=== PATIENT | female | born 1935 | race Caucasian/White ===

== ENCOUNTER → 2016-04-28 10:21 | Outpatient (CLI) | payer MEDICARE, OTHER ==
[2015-04-24 15:38] VITALS: BMI 33.0
[~2016-04-28 10:21] MED LIST: BAYER CHEWABLE81 MG PO; CELEBREX200 MG PO; CELEXA40 MG PO; CRESTOR10 MG PO; GLUCOSAMINE & C1 CAP PO; ISOSORBIDE MONO30 M1 PO; KENALOG IN ORABA5 GM TOPICAL; MULTI-DAY VITAM1 TAB PO; NEURONTIN 300300 MG PO; OYST-CAL-5001 TAB PO; PLAVIX75 MG PO; PROTONIX40 MG PO; VALTREX500 MG PO; XANAX0.5 MG PO; XARELTO20 MG PO; ZETIA10 MG PO
== END | disposition home or self-care (01) ==
LOC: D.CT 10:21
DX: J98.4 Other disorders of lung (principal)

== ENCOUNTER 2016-07-04 08:05 | Outpatient (CLI) | payer MEDICARE, OTHER ==
[~2016-07-04 08:05] MED LIST changes: -BAYER CHEWABLE81 MG PO
[2016-07-04 09:04] LABS: BASOPHILS 0 % (0-2); EOSINOPHILS 1.6 % (0-7); HEMATOCRIT 33.9 % (36.0-48.0); HEMOGLOBIN 11.2 g/dL (12-16); IMMATURE GRANULOCYTES 0.2 % (0-5); LYMPHOCYTES 31.9 % (15-50); MCH 31.3 pg (26.0-34.0); MCV 94.7 fL (80.0-100.0); MEAN PLATELET VOLUME 10.1 fL (7.4-10.4); MONOCYTES 9.1 % (2-11); NEUTROPHILS 57.2 % (40-80); PLATELET COUNT 191 10x3/uL (130-400); RBC 3.58 10x6/uL (4.00-5.40); RDW 13.4 % (11.5-14.5); WBC 4.4 10x3/uL (4.8-10.8)
[2016-07-04 09:15] LABS: ANION GAP 8.3 mmol/L (8-16); CALCIUM 9.1 mg/dL (8.5-10.1); CARBON DIOXIDE 30.6 mmol/L (21.0-32.0); CREATININE - SERUM 1.1 mg/dL (0.6-1.3); POTASSIUM - SERUM 3.9 mmol/L (3.5-5.1)
[2016-07-04 10:17] LABS: CKMB 0.6 U/L (0.0-3.6); CREATINE KINASE 60 UL (21-215); TROPONIN-I < 0.017 ng/mL (0.000-0.060)
[2016-07-04] MEDS ORDERED: BAYER CHEWABLE81 MG PO (12:45)
== END 2016-07-04 16:33 | disposition home or self-care (01) ==
LOC: D.CATH 08:05
PROVIDERS: Internal Medicine Interventional Cardiology
DX: I25.119 Atherosclerotic heart disease of native coronary artery with unspecified angina pectoris (principal); Z95.1 Presence of aortocoronary bypass graft; Z00.6 Encounter for examination for normal comparison and control in clinical research program
CPT/HCPCS: 92978; 92979; 93459; C9600

== ENCOUNTER → 2016-07-17 14:00 | Outpatient (CLI) | payer MEDICARE, OTHER ==
[2016-07-04 08:46] VITALS: BMI 32.8
[~2016-07-17 14:00] MED LIST changes: +BAYER CHEWABLE81 MG PO
== END | disposition home or self-care (01) ==
LOC: D.CT 14:00
DX: R10.13 Epigastric pain (principal)

== ENCOUNTER → 2016-12-23 12:42 | Outpatient (CLI) | payer MEDICARE, OTHER ==
[2016-07-04 08:46] VITALS: BMI 32.8
== END | disposition home or self-care (01) ==
LOC: D.CT 12:42
DX: J98.4 Other disorders of lung (principal)

== ENCOUNTER → 2017-04-27 10:01 | Outpatient (CLI) | payer MEDICARE, OTHER ==
[2016-07-04 08:46] VITALS: BMI 32.8
== END | disposition home or self-care (01) ==
LOC: D.CT 04-09 11:00
DX: R91.1 Solitary pulmonary nodule (principal)

== ENCOUNTER → 2017-05-04 16:37 | Outpatient (CLI) | payer MEDICARE, OTHER ==
[2016-07-04 08:46] VITALS: BMI 32.8
== END | disposition home or self-care (01) ==
LOC: D.LABREF 16:37
PROVIDERS: Internal Medicine Pulmonary Disease
DX: R91.1 Solitary pulmonary nodule (principal)

== ENCOUNTER → 2017-07-15 09:33 | Outpatient (CLI) | payer MEDICARE, OTHER ==
[~2017-07-15] VITALS: Ht 175.3 cm; Wt 98.2 kg
--- NOTE | ~2017-07-15 | HEMODYNAMI ---
PATIENT:DAVID VEGAS MEDICAL RECORD: [id number] : 39 LOCATION:D.CAT ADMISSION DATE: 07/15/17 Generatedon:07/15/201712:08 Patient name: DAVID PÉREZ Patient #: [id number] SS N: : 1935 Date of study: 07/15/2017 Page: Of Hemodynamic Procedure Report Patient Data Patient Demographics Procedure consent was obtained First Name: DAVID Gender: Female Last Name: SELENA PÉREZ : 1935 [facility] Initial: L Age: 82 year(s) Patient #: [id number] Race: Additional ID: [id number] Contact details [address]: [address] [place] [address] State: [place] City: [place] Zip code: [address] Past Medical History Allergies Allergen Reaction Date Comments Reported Other allergy 07/04/2016 Pronestyl Other allergy 07/15/2017 pronestyl Admission Admission Data Admission Date: 07/15/2017 Admission Time: 9:33 Procedure Procedure Types Cath Procedure Diagnostic Procedure LHC LHC w/Coronaries w/Grafts FFR/IVUS Intra-Coronary IVUS Initial Procedure Description Procedure Date Procedure Date: 07/15/2017 Procedure Start Time: 11:54 Procedure End Time: 12:06 Procedure Staff Name Function Bashir Dietz MD Performing Physician Ana Smith RT Monitor Lebron Diane RN Nurse Lyly Newby RT Scrub Procedure Data Cath Procedure Fluoroscopy Diagnostic fluoroscopy Total fluoroscopy Time: 2.7 time: 2.7 min min Diagnostic fluoroscopy Total fluoroscopy dose: 923 dose: 923 mGy mGy Contrast Material Contrast Material Type Amount (ml) Isovue 300 74 Entry Location Entry Primary Successful Side Size Upsize Upsize Entry Closure Succes sful Closure Location (Fr) 1 (Fr) 2 (Fr) Remarks Device Remarks Femoral Right 5 Fr 6 Fr Exoseal artery Short Estimated blood loss: 10 ml Diagnostic catheters Device Type Used For End Catheter Placement MULTIPACK Pigtail 5 Fr Procedure catheter MULTIPACK JL 4.0 5Fr Procedure catheter MULTIPACK 3DRC 5Fr Procedure catheter DIAGNOSTIC AR 2 MOD 5 Fr SVG Angiography catheter ([id number]) Procedure Complications No complications Procedure Medications Medication Administration Route Dosage Oxygen etCO2 Nasal cannula 2 l/min Heparin Flush Bag added to field 2 bags (1000units/500ml NS) 0.9% NaCl I.V. 100 ml/hr Lidocaine 2% added to field 20 Versed I.V. 1 mg Fentanyl I.V. 50 mcg Versed I.V. 1 mg Fentanyl I.V. 50 mcg Versed I.V. 1 mg Fentanyl I.V. 50 mcg Hemodynamics Rest Heart Rate: 61 (bpm) Snapshots Pre Cath Intra NCS Post Cath Vital Signs Time Heart Resp SPO2 etCO2 NIBP (mmHg) Rhythm Pain Sedation Rate (ipm) (%) (mmHg) Status Level (bpm) 11:17:55 60 16 95 0 157/73(101) Paced 0 (11) 10(A) , No pain 11:22:17 59 16 96 0 152/75(125) Paced 0 (11) 10(A) , No pain 11:26:41 60 20 95 0 151/69(122) Paced 0 (11) 10(A) , No pain 11:31:01 61 16 98 0 151/70(118) Paced 0 (11) 10(A) , No pain 11:35:22 60 15 94 8.2 142/73(105) Paced 0 (11) 10(A) , No pain 11:39:38 59 14 97 0 144/75(104) Paced 0 (11) 10(A) , No pain 11:43:54 59 16 98 14.2 141/68(118) Paced 0 (11) 10(A) , No pain 11:48:16 63 20 98 27.7 146/73(120) Paced 0 (11) 10(A) , No pain 11:52:40 60 15 97 0 139/71(104) Paced 0 (11) 9(A) , No pain 11:57:41 62 16 94 14.2 151/71(125) Paced 0 (11) 9(A) , No pain 12:02:05 60 17 93 0 140/77(131) Paced 0 (11) 9(A) , No pain 12:06:23 60 17 94 0 137/74(123) Paced 0 (11) 10(A) , No pain Medications Time Medication Route Dose Verified Delivered Reason Notes Eff ectiveness by by 11:26:03 Oxygen etCO2 2 Bashir Buffie Per Nasal l/min Mirela Diane RN physician cannula 11:26:11 Heparin Flush added 2 Bashir Buffie used for Bag to bags Mirela Diane RN procedure (1000units/500ml field NS) 11:26:20 0.9% NaCl I.V. 100 Bashirmarleny Novoaie Per ml/hr Mirela Diane RN physician 11:49:09 Lidocaine 2% added 20ml Bashir Bashir for local to vial Mirela Dietz MD anesthetic field 11:49:59 Versed I.V. 1 mg Bashir Buffie for Mirela Diane RN sedation 11:50:05 Fentanyl I.V. 50 Bashir Buffie for mcg Mirela Diane RN sedation 11:55:30 Versed I.V. 1 mg Bashir Buffie for Mirela Diane RN sedation 11:55:34 Fentanyl I.V. 50 Bashir Buffie for mcg Mirela Diane RN sedation 12:02:28 Versed I.V. 1 mg Bashir Buffie for Mirela Diane RN sedation 12:02:32 Fentanyl I.V. 50 Bashir Buffie for mcg Mirela Diane RN sedation Procedure Log Time Note 11:00:33 Lyly Newby RT(R) sent for patient. Start room use. 11:11:39 Time tracking: Regular hours (M-F 7:00 - 5:00) 11:11:44 Plan of Care:Hemodynamics will remain stable., Cardiac rhythm will remain stable., Comfort level will be maintained., Respiratory function will remain adequate., Patient/ family verbilizes understanding of procedure., Procedure tolerated without complication., Recovers from procedure without complications.. 11:11:48 Patient received from Pre/Post Procedure Room to CCL 2 Alert and oriented. Tansferred to table in Supine position. 11:11:49 Warm blankets applied, and ally hugger turned on for patient comfort. 11:11:49 Correct patient and procedure confirmed by team. 11:11:51 Signed procedure consent form obtained from patient. 11:11:51 ECG and BP/O2 sat monitors applied to patient. 11:16:37 Vital chart was started 11:16:52 Baseline sample Acquired. 11:16:58 Rhythm: paced 11:17:00 Full Disclosure recording started 11:17:13 H&P Date Dictated: 07/13/2017 Within 30 days and on chart., H&P Addendum completed by physician on day of procedure. (MUST COMPLETE FOR ALL OUTPATIENTS). 11:17:15 Pre-procedure instructions explained to patient. 11:17:18 Family in waiting room. 11:17:22 Patient NPO since Midnight. 11:17:54 Patient allergic to Other allergypronestyl 11:18:13 Is the patient allergic to Iodine/contrast media? No. 11:18:15 Was the patient premedicated? Yes 11:18:17 Is patient on blood thinner?Yes 11:18:20 Patient diabetic? No. 11:18:25 Snore? Yes 11:18:27 Sleep apnea? Yes 11:18:40 Airway obstruction? Yes COPD, Emphazema 11:18:47 Dentures? Unknown ? 11:18:54 Patient pain scale 0/10 ?. 11:18:59 IV patent on arrival in left forearm with 0.9% NaCl at [facility]. 11:19:07 Lab results completed and on chart. 11:19:11 Right groin area was prepped with chlora-prep and draped in sterile fashion 11:19:12 Alarms reviewed by R. N. 11:19:12 Sharps counted by scrub and verified by R.N. 11:26:03 Oxygen 2 l/min etCO2 Nasal cannula was administered by Lebron Diane RN; Per physician; 11:26:11 Heparin Flush Bag (1000units/500ml NS) 2 bags added to field was administered by Lebron Diane RN; used for procedure; 11:26:20 0.9% NaCl 100 ml/hr I.V. was administered by Lebron Diane RN; Per physician; 11:31:39 Use device set Femoral Dx 11:31:45 ACIST Syringe (28764) opened to sterile field. 11:31:46 Bag Decanter (2002) opened to sterile field. 11:31:47 Medline Cath Pack ([id number]) opened to sterile field. 11:31:48 DIAGNOSTIC WIRE .035 260cm J wire (674538) opened to sterile field. 11:31:49 ACIST Hand Control (57174) opened to sterile field. 11:31:50 ACIST Manifold (13764) opened to sterile field. 11:31:50 DIAGNOSTIC Multipack 5Fr catheter set (DP3476) opened to sterile field. 11:31:52 Tegaderm 4 x 4 (1626W) opened to sterile field. 11:31:53 PERCUTANEOUS ENTRY 19GA needle opened to sterile field. 11:31:56 SHEATH Prelude 5Fr 0.035 (ZOV-9I-09-035) opened to sterile field. 11:32:03 Zero performed for pressure channel P1 11:32:17 Zero performed for pressure channel P1 11:49:09 Lidocaine 2% 20ml vial added to field was administered by Bashir Dietz MD; for local anesthetic; 11:49:45 Physician arrived 11:49:46 --------ALL STOP TIME OUT------ 11:49:47 Final Timeout: patient, procedure, and site verified with staff and physician. All members of the team are in agreement. 11:49:51 Right groin site verified by team. 11:49:53 Physical assessment completed. ASA score P 2 - A patient with mild systemic disease as per Bashir Dietz MD. 11:49:58 Sedation plan: IV Moderate Sedation Medication:Versed, Fentanyl 11:49:59 Versed 1 mg I.V. was administered by Lebron Diane RN; for sedation; 11:50:05 Fentanyl 50 mcg I.V. was administered by Lebron Diane RN; for sedation; 11:53:16 Procedure started. 11:54:13 Local anesthetic to right femoral artery with Lidocaine 2% by Bashir Dietz MD.INITIAL ACCESS ONLY 11:55:30 Versed 1 mg I.V. was administered by Lebron Diane RN; for sedation; 11:55:34 Fentanyl 50 mcg I.V. was administered by Lebron Diane RN; for sedation; 11:55:52 A 5 Fr sheath was inserted into the Right Femoral artery 11:56:08 A MULTIPACK Pigtail 5 Fr catheter was advanced over the wire and used for Procedure. 11:56:19 LV gram done using BROWN 11:56:25 EF : 50 % 11:56:29 Catheter removed. 11:56:54 A MULTIPACK JL 4.0 5Fr catheter was advanced over the wire and used for Procedure. 11:57:00 LCA angiography performed. 11:58:50 Catheter removed. 11:59:01 A MULTIPACK 3DRC 5Fr catheter was advanced over the wire and used for Procedure. 11:59:05 RCA angiography performed. 12:01:05 A DIAGNOSTIC AR 2 MOD 5 Fr catheter ([id number]) was advanced over the wire and used for SVG Angiography. 12:01:10 Catheter removed. 12:01:14 SHEATH 6Fr Prelude ([id number]) opened to sterile field. 12:01:15 INFLATOR Merit BasixCompak (NT3132) opened to sterile field. 12:01:16 CHOICE PT Extra Support 182cm wire ([id number]) opened to sterile field. 12:01:17 Cromwell Gambell Eagleye IVUS Catheter (65914H) opened to sterile field. 12:01:17 GUIDE 6FR HS II catheter (FX4XWAM) opened to sterile field. 12:01:25 Proceeding to intervention. 12:01:44 Sheath upsized to a 6 Fr Short. 12:01:56 6 Fr HS2 guide catheter was inserted over the wire 12:02:09 choice pt ex wire advanced. 12:02:11 Wire advanced across lesion. 12:02:28 Versed 1 mg I.V. was administered by Lebron Diane RN; for sedation; 12:02:32 Fentanyl 50 mcg I.V. was administered by Lebron Diane RN; for sedation; 12:03:04 IVUS catheter advanced over wire. 12:04:04 IVUS catheter removed over wire. 12:04:12 EXOSEAL 6Fr (EX600) opened to sterile field. 12:04:19 Wire removed. 12:04:20 Guide catheter removed. 12:04:29 Sheath removed intact; hemostasis achieved with Exoseal to the Right Femoral artery. 12:04:47 Procedure ended.(Physican Out) 12:04:58 Fluoroscopy time 02.70 minutes. 12:05:02 Flurop Dose total: 923 12:05:02 Fluoroscopy dose: 923 mGy 12:05:06 Contrast amount:Isovue 300 74ml. 12:05:07 Sharps counted by scrub and verified by R.N. 12:05:10 Insertion/operative site no bleeding no hematoma. 12:05:11 Post Procedure Pulses reassessed and unchanged 12:05:16 Post procedure rhythm: unchanged. 12:05:19 Estimated blood loss: 10 ml 12:05:21 Post procedure instruction explained to patient.Patient verbalizes understanding. 12:05:35 Procedure type changed to Cath procedure, Diagnostic procedure, LHC, LHC w/Coronaries w/Grafts, FFR/IVUS, Intra-Coronary IVUS Initial 12:05:38 Procedure and supply charges have been captured, reviewed, submitted and are correct. 12:06:21 Procedure Complication : No complications 12:06:23 Vital chart was stopped 12::29 Patient transfered to Pre/Post Procedure Room with Stretcher. 12::31 Procedure ended. 12::31 Full Disclosure recording stopped 12::35 End room use (Document Last) Device Usage Item Name Manufacture Quantity Catalog Number Hospital Part Current M inimal Lot# / Charge Number Stock Stock Serial# Code ACIST Syringe Acist 1 45122 643740 735264 167277 2 0 (61338) [employer] Bag Decanter Microtek 1 2001S 211593 76408 749671 5 () Medical Inc. Medline Cath Cardinal 1 [id number] 351110 40123 600762 5 Pack Health ([id number]) DIAGNOSTIC WIRE [facility] Christiano 1 [id number] 286454 463437 200192 3 0 .035 260cm J wire (769960) ACIST Hand Acist 1 45856 936136 725999 732990 5 Control (86542) Medical Systems Inc ACIST Manifold Acist 1 80017 380298 019877 968361 5 (19121) Medical Systems Inc DIAGNOSTIC Cardinal 1 [id number] 602571 30993 334869 3 0 Multipack 5Fr Health catheter set (EV2297) Tegaderm 4 x 4 3M 1 1626W 432122 081234 351289 5 (1626W) PERCUTANEOUS Cook Medical 1 M09164 230669 604010 5 ENTRY 19GA needle SHEATH Prelude Merit 1 [id number] 208972 430578 085447 5 5Fr 0.035 Medical (VJK-2I-77-035) MULTIPACK Cardinal 1 982948 5 Pigtail 5 Fr Health catheter MULTIPACK JL Cardinal 1 242565 5 4.0 5Fr Health catheter MULTIPACK 3DRC Cardinal 1 396739 5 5Fr catheter Health DIAGNOSTIC AR 2 Cardinal 1 [id number] 564038 992285 534040 2 0 MOD 5 Fr Health catheter (677458P) SHEATH 6Fr Merit 1 [id number] 312876 519966 577470 5 Prelude Medical ([id number]) INFLATOR Merit Merit 1 KA6432 050703 584374 623804 1 5 [facility] (LK0051) CHOICE PT Extra Husser 1 [id number] 372220 149514 184759 5 Support 182cm Scientific wire ([id number]) Cromwell Cromwell 1 57495Y 105304 755952 919852 8 Gambell Eagleye IVUS Catheter (36828I) GUIDE 6FR HS II Medtronic 1 [id number] 057371 61509 208474 1 catheter ([id number]) EXOSEAL 6Fr Cardinal 1 EX600 491668 189742 023563 1 0 (EX600) Health Signature Audit [place] Stage Time Signature Unsigned Intra-Procedure 07/15/2017 Ana Smith 12:08:04 PM RT(R) Signatures Monitor : Ana Smith Signature : RT Date : Time : [place] [place] [address]
--- NOTE | ~2017-07-15 | OP ---
PATIENT NAME: DAVID VEGAS MEDICAL RECORD: [id number] :39 LOCATION:D.CAT ADMISSION DATE: SURGEON: DANIE AVINA MD DATE OF OPERATION: 07/15/2017 PROCEDURES: 1. Left heart catheterization. 2. Selective coronary angiography. 3. Left ventriculogram. 4. Vein graft angiography. 5. PICHARDO angiography. 6. Intravascular ultrasound. INDICATION: Angina and coronary artery disease. DESCRIPTION OF PROCEDURE: Informed consent obtained a detailed description of the risks, benefits as well as alternative therapies, the patient elected to proceed with angiogram and heart catheterization. The right femoral area is prepped and draped in normal sterile fashion. Right femoral artery was cannulated via modified technique with placement of a 6-Greenlandic sheath. All catheter exchanged through this sheath. FINDINGS: The left ventriculogram was performed in standard 30-degree BROWN view, reveals preserved cardiac wall motion, ejection fraction 50%. SELECTIVE CORONARY ANGIOGRAPHY: 1. Left main is with no significant angiographic disease. Previously placed stent is widely patent. 2. The left anterior descending is totally occluded mid vessel. 3. PICHARDO to the LAD is widely patent. 4. Left circumflex has a total occlusion of the first obtuse marginal. 5. Vein graft to the first obtuse marginal is widely patent. 6. The right coronary artery is widely patent. There was questionable area of stenosis in the mid vessel; however, intravascular ultrasound revealed this is nothing greater than 20%. OVERALL IMPRESSION: Wide patency of the previously placed stent in the left main, wide patency of the 2 grafts to left wide patency of the RCA with no significant disease. Continue medical management of the coronary artery disease and cardiac risk factors. TRANSINT:[id number] Voice Confirmation ID: [id number] DOCUMENT ID: [id number] DANIE AVINA MD at 1848 CC: [id number] DICTATION DATE: 07/15/17 1209 ABRASIVE GRINDER: 07/15/17 1430 DEP CLI 07/15/17 [place] [id number] [place] [id number]
[2017-07-15 09:59] VITALS: BP 170/72; Ht 175.3 cm; Wt 98.2 kg
[2017-07-15 10:09] LABS: BASOPHILS 0.3 % (0-2); EOSINOPHILS 2.3 % (0-7); HEMATOCRIT 33.3 % (36.0-48.0); LYMPHOCYTES 25.9 % (15-50); MCV 93.8 fL (80.0-100.0); MEAN PLATELET VOLUME 10.2 fL (7.4-10.4); MONOCYTES 8.6 % (2-11); NEUTROPHILS 62.9 % (40-80); PLATELET COUNT 169 10x3/uL (130-400); RBC 3.55 10x6/uL (4.00-5.40); RDW 14.2 % (11.5-14.5)
[2017-07-15 10:27] LABS: ANION GAP 13.2 mmol/L (8-16); CALCIUM 9.7 mg/dL (8.5-10.1); CARBON DIOXIDE 28.4 mmol/L (21.0-32.0); POTASSIUM - SERUM 4.6 mmol/L (3.5-5.1)
== END | disposition home or self-care (01) ==
LOC: D.CATH 09:33
PROVIDERS: Internal Medicine Interventional Cardiology
DX: I25.119 Atherosclerotic heart disease of native coronary artery with unspecified angina pectoris (principal); I48.91 Unspecified atrial fibrillation; E78.5 Hyperlipidemia, unspecified; Z95.0 Presence of cardiac pacemaker; I49.5 Sick sinus syndrome; Z01.812 Encounter for preprocedural laboratory examination

== ENCOUNTER → 2017-08-04 10:04 | Outpatient (CLI) | payer MEDICARE, OTHER ==
[2017-07-15 09:59] VITALS: BMI 31.9
== END | disposition home or self-care (01) ==
LOC: D.CT 08-03 11:00
DX: J98.4 Other disorders of lung (principal)